=== PATIENT | male | born 2000 | race Two or more races ===

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

== ENCOUNTER 2021-05-06 11:10 | Emergency (ER) | payer OTHER ==
[2021-05-06 11:18] VITALS: BP 152/107; PULSE 68; TEMP 97.8; BMI 30.7
[2021-05-06] MEDS ORDERED: FAMOTIDINE 20 MG TABLET PO ONE (11:55)
[2021-05-06] MEDS ORDERED: FAMOTIDINE 20 MG TABLET ONE (12:22)
[2021-05-06 13:17] LABS: SARS AG REFLEX COV19 SEND OUT negative (Negative)
[2021-05-07 19:06] LABS: SARS-CoV-2 NAA Not Detected (Not Detected)
== END 2021-05-06 13:13 | disposition home or self-care (01) ==
LOC: JER 11:10
DX: R05.1 Acute cough (principal)
CPT/HCPCS: 87426; 99283-25; C9803; U0003; U0005

== ENCOUNTER 2021-09-11 16:14 | Emergency (ER) | payer OTHER ==
[2021-09-11 16:24] VITALS: BP 183/82; PULSE 73; TEMP 98.6; BMI 31.4
[2021-09-11] MEDS ORDERED: FAMOTIDINE 20 MG/50 ML IVPB 20 MG/50 ML MG IVPB ONE ×2 (19:06→19:22)
[2021-09-11] MEDS ORDERED: SODIUM CHLORIDE 0.9% 500 ML INFUS.BAG IV ONE (19:06)
[2021-09-11 19:39] LABS: BASO % 0.6 % (0-2.0); EOS % 1.1 % (0-4.5); HEMATOCRIT 47.9 % (35.4-49); HEMOGLOBIN 16.3 GM/dL (11.7-16.9); LYMPH % 27.7 % (8-40); MCH 29.1 pg (25.7-33.7); MEAN CELL VOLUME 85.6 fl (80-96); MEAN PLT VOLUME 7.6 fl (7.5-11.1); MONO % 5.7 % (3.8-10.2); NEUT % 64.9 % (42.8-82.8); PLATELET COUNT 381 10^3/uL (134-434); RDW 13.3 % (11.9-15.9); WHITE BLOOD COUNT 14.5 K/mm3 (4.0-10.0)
[2021-09-11 20:05] LABS: ALBUMIN 5.1 g/dl (3.4-5.0); BLOOD UREA NITROGEN 20.4 mg/dL (7-18)
[2021-09-11 20:08] LABS: CREATININE 0.9 mg/dL (0.55-1.3)
[2021-09-11 20:10] LABS: BILIRUBIN,TOTAL 0.4 mg/dL (0.2-1)
[2021-09-11 21:11] LABS: URINE APPEARANCE CLEAR; URINE BILIRUBIN NEGATIVE (NEGATIVE); URINE COLOR YELLOW; URINE GLUCOSE (UA) NEGATIVE (NEGATIVE); URINE KETONE NEGATIVE (NEGATIVE); URINE LEUK ESTERASE NEGATIVE (NEGATIVE); URINE NITRITE NEGATIVE (NEGATIVE); URINE PROTEIN TRACE (NEGATIVE); URINE UROBILINOGEN 0.2 mg/dL (0.2-1.0)
== END 2021-09-11 20:30 | disposition left against medical advice (07) ==
LOC: JER 16:14 → JERFT 16:14
PROC: 3E033GC Introduction of Other Therapeutic Substance into Peripheral Vein, Percutaneous Approach (ICD-10-PCS; principal; 2021-09-11)
DX: R39.11 Hesitancy of micturition (principal); R10.13 Epigastric pain
CPT/HCPCS: 36415; 80053; 81003; 83690; 85025; 87086; 87491; 87591; 96374; 99284-25

== ENCOUNTER 2023-08-23 07:09 | Emergency (ER) | payer OTHER ==
[2023-08-23 07:28] VITALS: RESP 18; BMI 24.2
[2023-08-23] MEDS: MAG HYDROX/ALH/SMC/DPHA/LIDO 240 ML MOUTHWASH MM ONE (08:01)
[2023-08-23] MEDS ORDERED: IBUPROFEN 400 MG TABLET (FP) PO ONE (08:24)
[2023-08-23 08:25] LABS: THROAT:GRP A STREP NOT DETECTED (NOTDETECTED)
[2023-08-23] MEDS: IBUPROFEN 400 MG TABLET (FP) PO ONE (08:26)
[2023-08-23 08:52] VITALS: BP 151/93; PULSE 86; TEMP 98.3
== END 2023-08-23 09:18 | disposition home or self-care (01) ==
LOC: JERFT 07:09 → JER 07:09 → JERFT 09:18
DX: J06.9 Acute upper respiratory infection, unspecified (principal); J02.9 Acute pharyngitis, unspecified; R09.81 Nasal congestion; R05.9 Cough, unspecified; R11.10 Vomiting, unspecified; R50.9 Fever, unspecified; Z20.822 Contact with and (suspected) exposure to COVID-19
CPT/HCPCS: 0241U-QW; 87651; 99283-25